=== PATIENT | female | born 1960 | race Asian ===

== ENCOUNTER 2024-06-13 09:58 | Emergency (ER) | payer BC ==
[~2024-06-13] VITALS: Ht 167.6 cm; Wt 73.5 kg
[2024-06-13] MEDS ORDERED: TRICOR145 MG PO (10:32)
[2024-06-13] MEDS ORDERED: IRBESARTAN-HCT1 EAC1 (10:32)
[2024-06-13] MEDS ORDERED: SYNTHROID50 MCG PO (10:32)
[2024-06-13] MEDS ORDERED: BIOTIN5000 MC2 (10:32)
[2024-06-13] MEDS ORDERED: CRESTOR40 MG PO (10:32)
[2024-06-13] MEDS ORDERED: METFORMIN HCL500 MG PO (10:32)
[2024-06-13] MEDS: Clindamycin INJ 300 MG/50 ML 50 ML IV ONE (10:50)
[2024-06-13] MEDS: CLINDAMYCIN 600MG / 50ML 50 ML IV ONE (10:50)
[2024-06-13] MEDS: KETOROLAC TROMETHAMINE 30 MG/ML VIAL IV STA (10:50)
[2024-06-13] MEDS ORDERED: CLEOCIN HCL300 MG PO (11:29)
[2024-06-13] MEDS ORDERED: ULTRAM 50MG50 MG PO (11:29)
[2024-06-13 11:48] VITALS: PULSE 75; RESP 16; TEMP 97.5; O2SAT 97
== END 2024-06-13 11:48 | disposition home or self-care (01) ==
LOC: FSED 10:09
DX: L03.115 Cellulitis of right lower limb (principal); M25.471 Effusion, right ankle
CPT/HCPCS: 10060; 73610; 80053; 85025; 96374; 99284; J1885

== ENCOUNTER 2024-06-15 13:13 | Emergency (ER) | payer BC ==
[~2024-06-15] VITALS: Ht 167.6 cm; Wt 73.3 kg
[~2024-06-15 13:13] MED LIST: BIOTIN5000 MC2; CLEOCIN HCL300 MG PO; CRESTOR40 MG PO; IRBESARTAN-HCT1 EAC1; METFORMIN HCL500 MG PO; SYNTHROID50 MCG PO; TRICOR145 MG PO; ULTRAM 50MG50 MG PO
[2024-06-15 13:25] VITALS: PULSE 81; RESP 20; TEMP 98.5; O2SAT 97
[2024-06-15] MEDS ORDERED: BACTRIM DS TAB1 EACH PO (13:39)
[2024-06-15] MEDS ORDERED: HYDROCHLOROTHIA25 MG PO (13:47)
== END 2024-06-15 13:54 | disposition home or self-care (01) ==
LOC: FSED 13:18
DX: L03.115 Cellulitis of right lower limb (principal); I10 Essential (primary) hypertension; E11.9 Type 2 diabetes mellitus without complications; E78.5 Hyperlipidemia, unspecified; E03.9 Hypothyroidism, unspecified
CPT/HCPCS: 99284